=== PATIENT | female | born 1950 | race Caucasian/White ===

== ENCOUNTER 2021-11-13 07:50 | Outpatient (CLI) | payer OTHER | END 2021-11-13 09:00 | disposition home or self-care (01) | LOC: RAD 07:50 | PROVIDERS: ATTEND Ophthalmology | DX: Z01.810 Encounter for preprocedural cardiovascular examination (principal) ==

== ENCOUNTER 2022-03-31 07:30 | Outpatient (CLI) | payer OTHER | END 2022-03-31 07:34 | disposition home or self-care (01) | LOC: NUCLEAR 07:30 | PROVIDERS: ATTEND Internal Medicine Rheumatology | DX: D86.9 Sarcoidosis, unspecified (principal) | CPT/HCPCS: 78812; A9552 ==

== ENCOUNTER 2022-04-02 10:26 | Outpatient (CLI) | payer OTHER | END 2022-04-02 10:27 | disposition home or self-care (01) | LOC: LAB 10:26 | PROVIDERS: ATTEND Internal Medicine Rheumatology | DX: D64.9 Anemia, unspecified (principal); I10 Essential (primary) hypertension; E55.9 Vitamin D deficiency, unspecified; D86.9 Sarcoidosis, unspecified; E78.00 Pure hypercholesterolemia, unspecified ==

== ENCOUNTER → 2022-07-06 11:03 | Outpatient (CLI) | payer OTHER | END | disposition home or self-care (01) | LOC: LAB 11:03 | PROVIDERS: ATTEND Radiology Diagnostic Radiology | DX: K75.81 Nonalcoholic steatohepatitis (NASH) (principal) ==

== ENCOUNTER 2022-07-12 07:32 | Outpatient (CLI) | payer OTHER | END 2022-07-12 07:44 | disposition home or self-care (01) | LOC: RAD 07:32 | PROVIDERS: ATTEND Internal Medicine Gastroenterology | DX: R91.8 Other nonspecific abnormal finding of lung field (principal); K75.81 Nonalcoholic steatohepatitis (NASH); R16.0 Hepatomegaly, not elsewhere classified; R10.13 Epigastric pain; E04.2 Nontoxic multinodular goiter; E03.9 Hypothyroidism, unspecified | CPT/HCPCS: 71250; 74183; 76536; Q9965 ==

== ENCOUNTER 2023-07-19 08:37 | Outpatient (CLI) | payer OTHER | END 2023-07-19 08:50 | disposition home or self-care (01) | LOC: RX STUDY 08:37 | PROVIDERS: ATTEND Internal Medicine Gastroenterology | DX: E04.2 Nontoxic multinodular goiter (principal); N60.29 Fibroadenosis of unspecified breast; R14.0 Abdominal distension (gaseous); R10.30 Lower abdominal pain, unspecified; K59.00 Constipation, unspecified; E04.1 Nontoxic single thyroid nodule; Z12.31 Encounter for screening mammogram for malignant neoplasm of breast | CPT/HCPCS: 74176; 76536; 76641; 77067; Q9965 ==

== ENCOUNTER 2023-07-26 07:45 | Outpatient (CLI) | payer OTHER | END 2023-07-26 07:51 | disposition home or self-care (01) | LOC: RX STUDY 07:45 | PROVIDERS: ATTEND Internal Medicine Gastroenterology | DX: R13.10 Dysphagia, unspecified (principal) ==

== ENCOUNTER 2023-11-16 08:09 | Outpatient (CLI) | payer OTHER ==
[2023-11-16 08:52] LABS: HEMATOCRIT 43.1 % (36.0-45.00); HEMOGLOBIN 14.9 g/dL (12.0-15.00); MEAN CELL VOLUME 88.1 fL (80.00-100.00); MEAN CORPUSCULAR HEMOGLOBIN 30.4 pg (27.00-32.0); MEAN CORPUSCULAR HGB CONC 34.5 g/dl (32.0-36.0); PLATELET COUNT 304 K/uL (150-450); RED BLOOD COUNT 4.89 M/uL (4.00-6.00)
[2023-11-16 08:58] LABS: PH,URINE 5.5 (5.0-8.0); URINE APPEARANCE Clear; URINE BILIRRUBIN Negative (NEGATIVE); URINE BLOOD Negative; URINE COLOR Yellow; URINE GLUCOSE Negative (NEGATIVE); URINE LEUKOCYTE Trace; URINE NITRATE Positive; URINE PROTEIN Negative (NEGATIVE); URINE UROBILINOGEN 0.2 E.U./dl
[2023-11-16 09:02] LABS: URINE RBC 3.4 uL (0.0-20.8); URINE WBC 31.5 uL (0.0-23.2)
[2023-11-16 09:06] LABS: ERYTHROCYTE SEDIMENTATION RATE 15 mm/hr
[2023-11-16 09:08] LABS: URINE BACTERIA > 9821.5 uL (0.0-1933)
[2023-11-16 09:26] LABS: ALBUMIN 3.8 gm/dL (3.4-5.0); BILIRUBIN TOTAL 0.71 mg/dL (0.3-1.2); CALCIUM 9.8 mg/dL (8.5-10.1); CREATININE SERUM 0.62 mg/dL (0.55-1.02); GFR 93.84; GLOBULINA 3.9 G/DL (2.4-3.5); POTASSIUM 4.59 mEq/L (3.5-5.1); TOTAL PROTEIN 7.7 gm/dL (6.4-8.2)
== END 2023-11-16 08:10 | disposition home or self-care (01) ==
LOC: LAB 08:09
PROVIDERS: ATTEND Internal Medicine Rheumatology
DX: D86.9 Sarcoidosis, unspecified (principal)

== ENCOUNTER 2025-06-11 17:36 | Outpatient (CLI) | payer OTHER | END 2025-06-11 17:39 | disposition home or self-care (01) | LOC: RAD 17:36 | DX: E04.1 Nontoxic single thyroid nodule (principal) ==

== ENCOUNTER 2025-06-26 09:46 | Outpatient (CLI) | payer OTHER | END 2025-06-26 09:48 | disposition home or self-care (01) | LOC: NUCLEAR 09:46 | PROVIDERS: ATTEND Internal Medicine Pulmonary Disease | DX: Z13.820 Encounter for screening for osteoporosis (principal); M81.0 Age-related osteoporosis without current pathological fracture ==